=== PATIENT | male | born 2000 | race Caucasian/White ===

== ENCOUNTER 2019-03-25 16:43 | Emergency (ER) | payer OTHER ==
[~2019-03-25] VITALS: Ht 172.7 cm; Wt 63.5 kg
[2019-03-25 16:54] VITALS: BP 141/87
--- NOTE | 2019-03-25 17:59 | NUR ---
PT AMBULATED TO ER BED 11
--- NOTE | 2019-03-25 18:13 | NUR ---
18/M TO ED FOR C/O FLU LIKE SYMPTOMS AND SUBJECTIVE FEVER STARTING YESTERDAY. DENIES N/V. DENIES BODY ACHES AND CHILLS. IN BED FOR MSE.
--- NOTE | 2019-03-25 18:27 | NUR ---
Patient discharged with v/s stable. Written and verbal after care instructions given and explained. Patient alert, oriented and verbalized understanding of instructions. Ambulatory with steady gait. All questions addressed prior to discharge. ID band removed. Patient advised to follow up with PMD. Rx of TAMIFLU, TYLENOL, MOTRIN, BROMFED given. Patient educated on indication of medication including possible reaction and side effects. Opportunity to ask questions provided and answered.
[2019-03-25 18:28] VITALS: BP 141/87
== END 2019-03-25 18:27 | disposition home or self-care (01) ==
LOC: MED 16:43
DX: J06.9 Acute upper respiratory infection, unspecified (principal); R53.1 Weakness
CPT/HCPCS: 87804; 99283

== ENCOUNTER 2019-04-07 21:53 | Emergency (ER) | payer OTHER ==
[~2019-04-07] VITALS: Ht 172.7 cm; Wt 63.5 kg
[2019-04-07 22:18] VITALS: BP 133/83
--- NOTE | 2019-04-07 22:25 | NUR ---
PATIENT SITTING UP IN CHAIR A. ASSESSMENT COMPLETE AT THIS TIME. BIB SELF REPORTS BEING DX WITH CELLULITIS ON THE RIGHT UPPER ARM AND GIVEN ABX STARTED LAST NIGHT BUT THE SYMPTOMS HAVE WORSENED. REDNESS AND BLISTERING TO UPPER RIGHT ARM NOTED. STATES THERE IS A BURNING PAIN THAT GOES DOWN HIS ARM. NO OTHER COMPLAINTS AT THIS TIME. LUNGS CLEAR, ABD SOFT NON-TENDER.
--- NOTE | 2019-04-07 22:44 | NUR ---
PT WOUND ON R SHOULDER COVERED WITH NON ADHERENT DRESSING AND WRAPPED WITH COFLEX TAPE
[2019-04-07 22:52] VITALS: BP 133/83
--- NOTE | 2019-04-07 22:52 | NUR ---
Patient discharged with v/s stable. Written and verbal after care instructions given and explained. Patient alert, oriented and verbalized understanding of instructions. Ambulatory with steady gait. All questions addressed prior to discharge. ID band removed. Patient advised to follow up with PMD. Rx of Keflex and Bendadryl given. Patient educated on indication of medication including possible reaction and side effects. Opportunity to ask questions provided and answered.
== END 2019-04-07 22:52 | disposition home or self-care (01) ==
LOC: MED 21:53
DX: L03.113 Cellulitis of right upper limb (principal); M79.7 Fibromyalgia
CPT/HCPCS: 99283

== ENCOUNTER 2019-11-15 22:04 | Emergency (ER) | payer OTHER ==
[~2019-11-15] VITALS: Ht 172.7 cm; Wt 67.1 kg
[2019-11-15 22:27] VITALS: BP 145/72
--- NOTE | 2019-11-15 22:30 | NUR ---
19 Y/O MALE C/O CHEST PAIN RADIATING TO LEFT SHOULDER X 3 DAYS. WORSENING TODAY. WAS SEEN AT URGENT CARE TODAY AND EKG WAS DONE, WAS TOLD "IT WAS OKAY." PT STATES 4/10 THROBBING CHEST PAIN, INTERMITTENT. HEART SOUNDS HEARD. S1 AND S2. LUNGS SOUNDS CLA. ABD SOFT NON TENDER. MHX: FIBROMYALGIA, ARTHRITIS, IBS NKA
--- NOTE | 2019-11-15 23:18 | NUR ---
ERMD AT BEDSIDE EVALUATING PT
[2019-11-15 23:50] VITALS: BP 145/72
--- NOTE | 2019-11-15 23:50 | NUR ---
Patient discharged with v/s stable. Written and verbal after care instructions given and explained. Patient verbalized understanding. Ambulatory with steady gait. ID Band Removed. All questions addressed prior to discharge. Advised to follow up with PMD.
== END 2019-11-15 23:50 | disposition home or self-care (01) ==
LOC: MED 22:04
DX: R07.89 Other chest pain (principal)
CPT/HCPCS: 71045; 73030; 93005; 99284; Q0092